=== PATIENT | female | born 1965 | race Caucasian/White ===

== ENCOUNTER 2024-01-27 12:10 | Outpatient (CLI) | payer MEDICAID ==
[~2024-01-27 12:10] MED LIST: HYDR-4353 PO; LISI20TA28 PO; LORA0.5T PO
== END 2024-01-27 23:59 | disposition home or self-care (01) ==
LOC: MRI 12:10
PROVIDERS: ATTEND Family Medicine
DX: Z53.9 Procedure and treatment not carried out, unspecified reason (principal)